=== PATIENT | male | born 1950 ===

== ENCOUNTER → 2021-05-05 08:00 | Outpatient (CLI) | payer OTHER ==
[~2021-05-05 08:00] MED LIST: ADULT LOW DOSE81 M1 PO; COZAAR25 MG PO; GABAPEN PO; TOPROL XL25 M1 PO; VITAMIN D3 PO; [UNRECOGNIZED DRUG - CODE] PO
== END | disposition home or self-care (01) ==
LOC: ADM 05-02 09:30 → LAB 08:00 → EDSTATUS 05-07 09:30 → CIR.AMB 05-07 09:30
PROVIDERS: ATTEND Colon & Rectal Surgery
DX: D12.8 Benign neoplasm of rectum (principal); K92.1 Melena

== ENCOUNTER 2021-05-06 10:11 | Outpatient (CLI) | payer OTHER | END 2021-05-06 14:41 | disposition home or self-care (01) | LOC: LAB 10:11 | PROVIDERS: ATTEND Internal Medicine Geriatric Medicine | DX: D68.9 Coagulation defect, unspecified (principal) ==

== ENCOUNTER → 2021-05-12 09:26 | Outpatient (CLI) | payer OTHER | END | disposition home or self-care (01) | LOC: LAB 09:26 | PROVIDERS: ATTEND Internal Medicine Geriatric Medicine | DX: D68.9 Coagulation defect, unspecified (principal) ==

== ENCOUNTER 2021-07-17 11:37 | Outpatient (CLI) | payer OTHER | END 2021-07-17 11:38 | disposition home or self-care (01) | LOC: LAB 11:37 | PROVIDERS: ATTEND Internal Medicine Geriatric Medicine | DX: D68.9 Coagulation defect, unspecified (principal) ==